=== PATIENT | male | born 1950 | race Caucasian/White ===

== ENCOUNTER 2021-10-13 12:16 | Emergency (ER) | payer MEDICARE, SELFPAY ==
--- NOTE | ~2021-10-13 | XR_ITS ---
XR knee LT min 4V 10/13/2021 12:49 Indication: Status post trauma. Generalized pain. Procedure: 5 views of the left knee Comparison: No prior studies for comparison. Findings: There is a small ossific density just lateral to the distal aspect of the femur with associ ated soft tissue swelling. Small avulsion fracture cannot be excluded. 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 There is subtle chondrocalcinosis. Moderate joint effusion. Impression: 1: Small ossific density lateral to the femoral condyle with associated soft tissue swelling. Small a vulsion fracture not excluded. Correlate for point tenderness. 2: Moderate joint effusion. Reviewed, dictated and finalized at location A. Impression: 1: Small ossific density lateral to the femoral condyle with associated soft ti ssue swelling. Small avulsion fracture not excluded. Correlate for point tender ness. 2: Moderate joint effusion.
[2021-10-13 12:26] VITALS: BP 177/79; PULSE 87; RESP 16; TEMP 38.1; O2SAT 100
--- NOTE | 2021-10-13 12:49 | ED.LOWEXIN ---
HPI - Extremity Injury (Lower) General Chief Complaint: Extremity Injury, Lower Stated Complaint: Left knee injury Time Seen by Provider: 10/13/21 13:00 Source: patient and RN notes reviewed Mode of arrival: ambulatory Limitations: no limitations History of Present Illness HPI Narrative: 71-year-old female presents with concern for left knee injury. Reports she tripped over a cord and has been having the pain since. Reports previous to that she had been walking awkwardly on the leg because she had Planter fasciitis in the left foot. Reports she has taken ibuprofen a couple of times with some relief. Reports she used ice with some relief. She reports lateral tenderness. MD complaint: knee injury Related Data Allergies Allergy/AdvReac Type Severity Reaction Status Date / Time No Known Allergies Allergy Verified 10/13/21 12:31 Review of Systems Review of Systems: CONSTITUTIONAL: Denies malaise, chills, sweats, or fever. SKIN: Denies rash or itching, open skin, laceration, abrasion, redness, warmth MUSCULOSKELETAL: Reports left knee pain and swelling NEUROLOGIC: Denies numbness, weakness All systems reviewed & are unremarkable except as noted in HPI and below PMFSH Comments At time of signature, agree with nursing past medical, surgical, social and family history. There is no relevant family history pertinent to the presenting complaint Exam Narrative: GENERAL: Well-appearing, well-nourished, and in no acute distress. HEAD: Normocephalic, atraumatic. EYES: PERRLA, conjunctivae clear NECK: Supple. CHEST: Speaks in full sentences. No respiratory distress. HEART: Regular rate and rhythm. Normal and equal peripheral pulses. EXTREMITIES: Left knee has normal strength and sensation, limited range of motion. Mild generalized edema, no erythema or ecchymosis. 5/5 strength with knee flexion and extension. Normal sensation with sensitivity to light touch and pain. Lateral tenderness. No open wounds, no skin tenting, no devitalized tissue or atrophy, no trophic changes, no obvious deformity, alignment normal, nearby joints and structures intact. Distal pulses palpable and equal bilaterally, skin warm, dry, pink. Capillary refill less than 3 seconds. Lever test negative SKIN: Warm, dry, no rash. NEURO: Alert and oriented x3. PSYCH: Normal mood and affect Course Course Emergency Course: Patient is aware of diagnosis, understands and agrees to treatment plan. Anticipatory guidance given. Patient agrees to follow-up as directed and is aware of reasons to seek care at the emergency department. Portions of this record may have been created with voice recognition software Level of Care: Express Care Visit Vital Signs Vital signs: Vital Signs Temperature 100.5 F H 10/13/21 12:26 Pulse Rate 87 10/13/21 12:26 Respiratory Rate 16 10/13/21 12:26 Blood Pressure 177/79 H 10/13/21 12:26 Pulse Oximetry 100 10/13/21 12:26 Temperature 100.5 F H 10/13/21 12:26 Pulse Rate 87 10/13/21 12:26 Respiratory Rate 16 10/13/21 12:26 Blood Pressure 177/79 H 10/13/21 12:26 Pulse Oximetry 100 10/13/21 12:26 Reviewed. MDM - Extremity Injury (Lower) MDM Narrative Medical decision making narrative: Patients injury and pain is consistent with musculoskeletal etiology. No signs of neurological or vascular compromise on exam. Compartments and tissues are soft without signs of compartment syndrome. Pain is felt appropriate for further evaluation on an outpatient basis. Imaging Data My impression: Images reviewed, interpreted by radiologist, agree, see report. Radiologist's impression: XR knee LT min 4V 10/13/2021 12:49 Indication: Status post trauma. Generalized pain. Procedure: 5 views of the left knee Comparison: No prior studies for comparison. Findings: There is a small ossific density just lateral to the distal aspect of the femur with associated soft tissue swelling. Small avulsion fracture cannot be exclude
== END 2021-10-13 13:30 | disposition home or self-care (01) ==
PROVIDERS: Emergency Provider Nurse Practitioner
DX: S89.92XA Unspecified injury of left lower leg, initial encounter (principal); W22.8XXA Striking against or struck by other objects, initial encounter; I10 Essential (primary) hypertension; K21.9 Gastro-esophageal reflux disease without esophagitis
CPT/HCPCS: 73564; 99213; G0463

== ENCOUNTER 2022-10-01 13:28 | Emergency (ER) | payer MEDICARE, SELFPAY ==
[2022-10-01 13:38] VITALS: BP 178/98; PULSE 78; RESP 16; TEMP 37.3; O2SAT 99
[2022-10-01 13:47] VITALS: BP 178/98; PULSE 78; RESP 16; TEMP 37.3; O2SAT 99
--- NOTE | 2022-10-01 13:53 | ED.URI ---
HPI - URI/Sore Throat General Chief Complaint: Upper Respiratory Infection Stated Complaint: Sinus Congestion Source: patient and RN notes reviewed History of Present Illness HPI Narrative: 72-year-old female presents to urgent care with complaints of congestion, sore throat, cough, sinus pressure, and sinus pain x 2 weeks. Patient states her cough is sometimes worse at nighttime when she 1st lies down. Patient is also reporting her throat hurts worse with the cough. Patient denies any chest pain, shortness of breath, fevers, chills, vomiting, or diarrhea. Patient is using [id number] medications including Mucinex and attempting to use a Neti pot without relief. Some parts of this dictation were generated by voice recognition software and may contain typographical and/or grammatical inaccuracies. Related Data Home Medications Medication Instructions Recorded Confirmed alprazolam 0.5 mg tablet 0.5 mg PO DAILY PRN Anxiety 10/01/22 10/01/22 fluoxetine 10 mg capsule 10 mg PO DAILY 10/01/22 10/01/22 losartan 50 mg tablet 50 mg PO DAILY 10/01/22 10/01/22 omeprazole 40 mg capsule,delayed 40 mg PO DAILY 10/01/22 10/01/22 release Allergies Allergy/AdvReac Type Severity Reaction Status Date / Time No Known Allergies Allergy Verified 10/01/22 13:47 Review of Systems Review of Systems: Pertinent positives and pertinent negatives per HPI. PMFSH Comments At the time of my signature, I reviewed and agree with the nursing past medical, surgical, social, and family history. There is no relevant family history pertinent to the patient complaint. Exam Narrative: GENERAL: This is a well-nourished, well-developed patient, in no apparent distress. HEAD: normocephalic, atraumatic. EYES: Sclera clear/white. Vision is grossly intact. EARS: External ears normal, auditory canals clear and without drainage, TMs normal without perforation. Hearing grossly intact. NOSE: Congested THROAT: Mucous membranes moist, posterior pharynx clear. NECK: Neck supple, non-tender without lymphadenopathy, masses or thyromegaly. CARDIOVASCULAR: Regular rate and rhythm without murmurs, gallops, or rubs. RESPIRATORY: Clear to auscultation. Breath sounds equal bilaterally. No wheezes, rales, or rhonchi. SKIN: warm, intact with no suspicious lesions or rash, good texture and turgor. NEURO: awake, alert, and oriented to person, place and time. There were no obvious focal neurologic abnormalities. Course Course Level of Care: Express Care Visit Vital Signs Vital signs: Vital Signs Temperature 99.1 F 10/01/22 13:38 Pulse Rate 78 10/01/22 13:38 Respiratory Rate 16 10/01/22 13:38 Blood Pressure 178/98 H 10/01/22 13:38 Pulse Oximetry 99 10/01/22 13:38 Oxygen Delivery Room Air 10/01/22 13:38 Temperature 99.1 F 10/01/22 13:47 Pulse Rate 78 10/01/22 13:47 Respiratory Rate 16 10/01/22 13:47 Blood Pressure 178/98 H 10/01/22 13:47 Pulse Oximetry 99 10/01/22 13:47 Oxygen Delivery Room Air 10/01/22 13:47 Reviewed MDM - URI/Sore Throat MDM Narrative Medical decision making narrative: Go to the ER for any new or worsening symptoms. Avoid smoking/second-hand smoke. Continue to take Tylenol or Motrin for pain. Increase your Vitamin C intake. Use a humidifier or vaporizer at night. Take Medications as prescribed. Drink plenty of water. 8-10 glasses per day. Use flonase 2 times per day for 5 days then as needed Take mucinex 2 times per day and be sure to take with 8oz of water. Follow up with Primary provider if not getting better. Differential Diagnosis Differential diagnosis: Likely upper respiratory infection, sinusitis and viral infection Critical Care Time Critical Care Time Critical Care Time: No Discharge Plan Discharge Clinical Impression: Bronchitis Sinusitis Qualifiers: Sinusitis location: unspecified location Chronicity: unspecified Qualified Code(s): J32.9 - Chronic sinusit
== END 2022-10-01 14:00 | disposition home or self-care (01) ==
PROVIDERS: Emergency Provider Nurse Practitioner Family; PCP Family Medicine
DX: J40 Bronchitis, not specified as acute or chronic (principal); J32.9 Chronic sinusitis, unspecified; I10 Essential (primary) hypertension; K21.9 Gastro-esophageal reflux disease without esophagitis; Z85.3 Personal history of malignant neoplasm of breast; F41.9 Anxiety disorder, unspecified; F32.A Depression, unspecified
CPT/HCPCS: 99213; G0463

== ENCOUNTER 2023-08-06 15:40 | Emergency (ER) | payer MEDICARE, SELFPAY ==
[2023-08-06 15:54] VITALS: BP 158/79; PULSE 75; RESP 16; TEMP 37.2; O2SAT 100
--- NOTE | 2023-08-06 16:00 | ED.URI ---
HPI - URI/Sore Throat General Chief Complaint: Upper Respiratory Infection Stated Complaint: Congestion/Cough Time Seen by Provider: 08/06/23 16:00 Source: patient Mode of arrival: ambulatory Limitations: no limitations History of Present Illness HPI Narrative: 73-year-old female presents with complaint of often on cough, congestion, postnasal drainage, sinus pressure for the past 4 weeks. Reports she ring viruses back in forth between family members. Was seen at ER over the weekend for urinary symptoms. Told that she had kidney stone. Told them about cough and sinus symptoms. Had negative COVID, influenza RSV and strep testing. Taking cephalexin for urinary tract infection. Denies chest pain and shortness of breath. All systems reviewed and negative except as noted above. Related Data Home Medications Medication Instructions Recorded Confirmed alprazolam 0.5 mg tablet 0.5 mg PO DAILY PRN Anxiety 10/01/22 10/01/22 fluoxetine 10 mg capsule 10 mg PO DAILY 10/01/22 10/01/22 losartan 50 mg tablet 50 mg PO DAILY 10/01/22 10/01/22 omeprazole 40 mg capsule,delayed 40 mg PO DAILY 10/01/22 10/01/22 release Allergies Allergy/AdvReac Type Severity Reaction Status Date / Time No Known Allergies Allergy Verified 10/01/22 13:47 Review of Systems Review of Systems: CONSTITUTIONAL: Denies fever, chills, or sweats. Reports fatigue. EYES: Denies visual changes, redness, or discharge. ENT: Reports rhinorrhea, congestion, sore throat, sinus pressure. Denies otalgia. CARDIOVASCULAR: Denies chest pain, palpitations, or edema. RESPIRATORY: Reports cough. Denies dyspnea. GASTROINTESTINAL: Denies abdominal pain, nausea, vomiting, or diarrhea. GENITOURINARY: Denies dysuria or hematuria. SKIN: Denies rash or itching. MUSCULOSKELETAL: Denies back pain, joint pain, or myalgia. NEUROLOGIC: Denies headache, numbness, or weakness. PSYCHIATRIC: Denies anxiety or depression. All other systems reviewed are negative, except as documented in HPI. PMFSH Comments At time of signature, agree with nursing past medical, surgical, social and family history. There is no relevant family history pertinent to the presenting complaint. Exam Narrative: GENERAL: This is a well-nourished, well-developed patient, in no apparent distress. HEAD: normocephalic, atraumatic. EYES: PERRL. Sclera clear/white. Vision is grossly intact. EARS: External ears normal, auditory canals clear and without drainage, TMs normal without perforation. Hearing grossly intact. NOSE: External nose normal with clear nasal drainage, erythema, mild congestion. THROAT: Mucous membranes moist, erythema postnasal drainage NECK: Neck supple, non-tender without lymphadenopathy, masses or thyromegaly. CARDIOVASCULAR: Regular rate and rhythm without murmurs, gallops, or rubs. RESPIRATORY: Clear to auscultation. Breath sounds equal bilaterally. No wheezes, rales, or rhonchi. SKIN: warm, Dry, intact with no suspicious lesions or rash, good texture and turgor. NEURO: awake, alert, and oriented to person, place and time. There were no obvious focal neurologic abnormalities. EXTREMITIES: No joint tenderness, effusion, or edema noted. Course Course Level of Care: Express Care Visit Vital Signs Vital signs: Vital Signs Temperature 37.2 C 08/06/23 15:54 Pulse Rate 75 08/06/23 15:54 Respiratory Rate 16 08/06/23 15:54 Blood Pressure 158/79 H 08/06/23 15:54 Pulse Oximetry 100 08/06/23 15:54 Oxygen Delivery Room Air 08/06/23 15:54 Temperature 37.2 C 08/06/23 15:54 Pulse Rate 75 08/06/23 15:54 Respiratory Rate 16 08/06/23 15:54 Blood Pressure 158/79 H 08/06/23 15:54 Pulse Oximetry 100 08/06/23 15:54 Oxygen Delivery Room Air 08/06/23 15:54 Reviewed MDM - URI/Sore Throat MDM Narrative Medical decision making narrative: Patient is aware of diagnosis, understands and agrees to treatment plan. Anticipatory guidance given. Patient a
== END 2023-08-06 16:40 | disposition home or self-care (01) ==
PROVIDERS: Emergency Provider Nurse Practitioner Family
DX: J01.90 Acute sinusitis, unspecified (principal); Z20.822 Contact with and (suspected) exposure to COVID-19
CPT/HCPCS: 87426; 87804; 99213; G0463

== ENCOUNTER 2024-05-08 09:25 | Emergency (ER) | payer MEDICARE, SELFPAY ==
--- NOTE | 2024-05-08 09:39 | ED_ITS ---
HPI - URI/Sore Throat General Chief Complaint: Upper Respiratory Infection Stated Complaint: sinus/bronchitis Time Seen by Provider: 05/08/24 09:39 Source: patient Mode of arrival: ambulatory Limitations: no limitations History of Present Illness HPI Narrative: 73-year-old female presents with complaint of cough, chest congestion, shortness of breath with exertion, sinus congestion and pressure for the past 8 days. Symptoms worse over the last 4 days. Taking [id number] medications to treat symptoms without relief. Patient is a current every day smoker. Reports that smoking has increased in the last 4 months due to stress related to a divorce. Does have a primary care physician who does preventive lung cancer screenings. no history of COPD. All systems reviewed and negative except as noted above. Related Data Home Medications Medication Instructions Recorded Confirmed alprazolam 0.5 mg tablet 0.5 mg PO DAILY PRN Anxiety 10/01/22 10/01/22 losartan 50 mg tablet 50 mg PO DAILY 10/01/22 10/01/22 diltiazem HCl 180 mg 180 mg PO DAILY 05/08/24 05/08/24 capsule,extended release 24 hr, controlled escitalopram oxalate 10 mg tablet 10 mg PO DAILY 05/08/24 05/08/24 Allergies Allergy/AdvReac Type Severity Reaction Status Date / Time levofloxacin [From Levaquin] Allergy Unknown Verified 05/08/24 09:38 Review of Systems Review of Systems: CONSTITUTIONAL: Denies fever, chills, or sweats. EYES: Denies visual changes, redness, or discharge. ENT: Reports rhinorrhea, congestion, sinus pressure. Denies sore throat, or otalgia. CARDIOVASCULAR: Denies chest pain, palpitations, or edema. RESPIRATORY: reports cough, chest congestion, dyspnea with exertion. GASTROINTESTINAL: Denies abdominal pain, nausea, vomiting, or diarrhea. GENITOURINARY: Denies dysuria or hematuria. SKIN: Denies rash or itching. MUSCULOSKELETAL: Denies back pain, joint pain, or myalgia. NEUROLOGIC: Denies headache, numbness, or weakness. PSYCHIATRIC: Denies anxiety or depression. All other systems reviewed are negative, except as documented in HPI. PMFSH Comments At time of signature, agree with nursing past medical, surgical, social and family history. There is no relevant family history pertinent to the presenting complaint. Exam Narrative: GENERAL: This is a well-nourished, well-developed patient, in no apparent distress. HEAD: normocephalic, atraumatic. EYES: PERRL. Sclera clear/white. Vision is grossly intact. EARS: External ears normal, auditory canals clear and without drainage, TMs normal without perforation. Hearing grossly intact. NOSE: External nose normal with Moderate congestion, purulent nasal drainage e rythema to bilateral nares. Maxillary sinus tenderness on palpation bilaterally. THROAT: Mucous membranes moist, erythema postnasal drainage NECK: Neck supple, non-tender without lymphadenopathy, masses or thyromegaly. CARDIOVASCULAR: Regular rate and rhythm without murmurs, gallops, or rubs. RESPIRATORY: Mild coarse and wheezy throughout all lung sounds on expiration. Breath sounds equal bilaterally. No rales, or rhonchi. SKIN: warm, Dry, intact with no suspicious lesions or rash, good texture and turgor. NEURO: awake, alert, and oriented to person, place and time. There were no obvi ous focal neurologic abnormalities. EXTREMITIES: No joint tenderness, effusion, or edema noted. Course Course Level of Care: Express Care Visit Vital Signs Vital signs: Vital Signs Temperature 36.8 C 05/08/24 09:42 Pulse Rate 73 05/08/24 09:42 Respiratory Rate 20 05/08/24 09:42 Blood Pressure 146/78 H 05/08/24 09:42 Pulse Oximetry 96 05/08/24 09:42 Oxygen Delivery Room Air 05/08/24 09:42 Temperature 36.8 C 05/08/24 09:42 Pulse Rate 73 05/08/24 09:42 Respiratory Rate 20 05/08/24 09:42 Blood Pressure 146/78 H 05/08/24 09:42 Pulse Oximetry 96 05/08/24 09:42 Oxygen Delivery Room Air 05/08/24 09:42 reviewed MDM - URI/Sore Throat MDM Narrative Medical decision making narrative: Patient is aware of diagnosis, understands and agrees to treatment plan. Anticipatory guidance given. Patient agrees to follow-up as directed and is aware of reasons to seek care at the emergency department. Portions of this record may have been created with voice recognition software will treat patient for bacterial sinusitis due to duration of symptoms and exam findings. Will prescribe albuterol inhaler and prednisone today due to coarse lung sounds. Recommend patient follow-up primary care physician as needed. No respiratory distress. Discharge Plan Discharge Clinical Impression: Acute bacterial sinusitis, Acute bronchitis Patient Disposition: Home, Self-Care Condition: Stable Instructions: Antibiotic Form, Acute Bronchitis (ED) Additional Instructions: take medications as prescribed. Continue taking [id number] Mucinex as directed on packaging. Take Tylenol or ibuprofen every 6-8 hours as needed for pain and fever. Drink at least 64 oz of water a day. Follow-up with your primary care physician if symptoms are not improving. Prescriptions: New doxycycline hyclate 100 mg capsule 100 mg PO BID 7 Days Qty: 14 0RF benzonatate 200 mg capsule 200 mg PO TID PRN (Reason: cough) Qty: 20 0RF (DME) Aerochamber Plus Z Stat Spacer See Rx Instructions .Route Qty: 1 0RF Rx Instructions: As directed prednisone 20 mg tablet 40 mg PO DAILY 5 Days Qty: 10 0RF albuterol sulfate 90 mcg/actuation HFA aerosol inhaler 2 puff inhalation Q4-6H PRN (Reason: shortness of breath or wheezing) Qty: 8.5 0RF No Action losartan 50 mg tablet 50 mg PO DAILY alprazolam 0.5 mg tablet 0.5 mg PO DAILY PRN (Reason: Anxiety) diltiazem HCl 180 mg capsule,ext.rel 24h degradable 180 mg PO DAILY escitalopram oxalate 10 mg tablet 10 mg PO DAILY Follow-up/Referrals: PHYSICIAN NOT ON STAFF,NONSTAFF [Primary Care Provider] - Time of Disposition: 09:48
[2024-05-08 09:42] VITALS: BP 146/78; PULSE 73; RESP 20; TEMP 36.8; O2SAT 96
== END 2024-05-08 10:00 | disposition home or self-care (01) ==
PROVIDERS: Emergency Provider Nurse Practitioner Family
DX: J01.90 Acute sinusitis, unspecified (principal); J20.9 Acute bronchitis, unspecified; I48.91 Unspecified atrial fibrillation; I10 Essential (primary) hypertension; K21.9 Gastro-esophageal reflux disease without esophagitis; F41.9 Anxiety disorder, unspecified; F32.A Depression, unspecified; Z85.3 Personal history of malignant neoplasm of breast; Z90.12 Acquired absence of left breast and nipple
CPT/HCPCS: 99213; G0463